=== PATIENT | male | born 1985 | race Caucasian/White ===

== ENCOUNTER 2023-09-04 21:55 | Emergency (ER) | payer BC, SELFPAY ==
--- NOTE | ~2023-09-04 | CT_ITS ---
EXAMINATION: CT lumbar spine wo con DATE: 09/04/2023 22:36 INDICATION: Left hip and leg pain extending from the waist down post fall TECHNIQUE: Computed tomography (CT) of the lumbar spine was performed without intravenous contrast. A utomated exposure control and iterative reconstruction technique were employed. The dose-length produ ct was 1359.34 mGy-cm. COMPARISON: None FINDINGS: Transitional L5 segment which is sacralized on the left and with likely developmentally small L5-S1 d isc space. Alignment is normal. Vertebral body heights are normal. No fracture. Mild disc height loss at L4-L5. There are mild disc bulges at L2-L3, L3-L4 and L4-L5 with mild central canal stenosis at L 3-L4 and L4-L5. Posterior elements are unfused at L5 and S1. There is multilevel minimal to mild face t osteoarthritis in the lumbar spine. No neural foraminal stenosis. Paravertebral soft tissues are un remarkable. IMPRESSION: 1. Mild lumbar spondylosis. Reviewed, dictated and finalized at location A. IMPRESSION: 1. Mild lumbar spondylosis.
--- NOTE | ~2023-09-04 | XR_ITS ---
EXAMINATION: XR hip LT 2V w AP pelvis DATE: 09/04/2023 22:42 INDICATION: Left hip and leg pain post fall TECHNIQUE: Anteroposterior view of the pelvis and anteroposterior and frog-leg lateral views of the l eft hip were obtained. COMPARISON: CT dated 06/05/2016 FINDINGS: Bone alignment is normal. No fracture. Joint spaces are normal. Chronic bone islands at the left femo ral head and neck. Transitional L5 segment which is sacralized on the left and with unfused posterior elements. Soft tissues are unremarkable. IMPRESSION: 1. No acute osseous abnormality. Reviewed, dictated and finalized at location A.
--- NOTE | ~2023-09-04 | CT_ITS ---
EXAMINATION: CT brain wo con DATE: 09/04/2023 22:36 INDICATION: Fall with head injury and loss of consciousness TECHNIQUE: Computed tomography (CT) of the head was performed without intravenous contrast. Sagittal and coronal reconstructions were performed. The mA was adjusted according to patient size. Iterative reconstruction technique was employed. The dose-length product was 605.33 mGy-cm. COMPARISON: None FINDINGS: No fracture. No acute intracranial hemorrhage, acute infarction or abnormal extra axial fluid collect ion. Ventricles are normal and symmetric. No mass/mass effect. Mild mucosal thickening in the right s phenoid sinus. The orbits and mastoid air cells are normal. IMPRESSION: 1. Normal brain. No fracture or acute intracranial process. Reviewed, dictated and finalized at location A.
--- NOTE | ~2023-09-04 | CT_ITS ---
EXAMINATION: CT cervical spine wo con DATE: 09/04/2023 22:36 INDICATION: Fall with head injury TECHNIQUE: Computed tomography (CT) of the cervical spine was performed without intravenous contrast. Automated exposure control and iterative reconstruction technique were employed. The dose-length pro duct was 557.96 mGy-cm. COMPARISON: None FINDINGS: Mild reversal of the normal cervical lordosis which is likely positional. No spondylolisthesis or fac et subluxation. Vertebral body heights are normal. No acute fracture. Mild osteoarthritis at the atla ntoaxial articulation. Disc heights are normal. No central canal or neural foraminal stenosis. Cervic al soft tissues are unremarkable. Visualized apices of lungs are clear. IMPRESSION: 1. Unremarkable cervical spine CT with no acute osseous abnormality. Reviewed, dictated and finalized at location A.
[2023-09-04 21:52] VITALS: BP 149/94; PULSE 63; RESP 18; TEMP 36.4; O2SAT 96
[2023-09-04] MEDS: ACETAMINOPHEN 500 MG TABLET 1000 MG PO (22:18)
--- NOTE | 2023-09-04 22:25 | ED.GENADULT ---
HPI - General Adult General Chief complaint: Fall Stated complaint: FALL, +LOC Time Seen by Provider: 09/04/23 22:00 History of Present Illness HPI narrative: This is a 30-year-old male presenting after a fall. Patient was trying to get out of his [employer] when he believes he slipped and fell landing on his backside. He now has pain in his lower back, in his left hip shooting down his left leg. He also has a headache. Patient states he feels woozy. Patient states multiple times that he is under a significant of stress at work. He works as a pharmacist. He has anxiety for which he takes an SNRI and clonazepam. Patient states last dose of the clonazepam was this morning. no use of blood thinners. Related Data Allergies Allergy/AdvReac Type Severity Reaction Status Date / Time Penicillins Allergy Intermediate RASH Verified 09/04/23 22:02 [facility] Past Medical History Medical History Anxiety Exam Narrative: APPEARANCE: No apparent distress. Head: atraumatic. EYES: EOMI, NOSE: Atraumatic NECK: Trachea midline RESPIRATORY: No increased rate of breathing, CTAB CARDIOVASCULAR: RRR, no peripheral edema ABDOMINAL: Non-distended MUSCULOSKELETAl: no obvious deformity NEURO: Alert. Cranial nerves 2-12 grossly intact. Sensation light touch, motor function cerebellar function intact for 4 extremities. SKIN:: Warm, dry. Normal color PSYCHIATRIC: Normal affect Course Vital Signs Vital signs: Vital Signs Temperature 97.6 F 09/04/23 21:52 Pulse Rate 63 09/04/23 21:52 Respiratory Rate 18 09/04/23 21:52 Blood Pressure 149/94 H 09/04/23 21:52 Pulse Oximetry 96 09/04/23 21:52 Oxygen Delivery Room Air 09/04/23 21:52 Temperature 97.6 F 09/04/23 21:52 Pulse Rate 80 09/04/23 23:17 Respiratory Rate 18 09/04/23 23:17 Blood Pressure 151/93 H 09/04/23 23:17 Pulse Oximetry 100 09/04/23 23:17 Oxygen Delivery Room Air 09/04/23 21:52 Medical Decision Making MDM Narrative Medical decision making narrative: -Course: 38-year-old male fall presenting ED after falling out of his truck. Trauma workup negative. Patient treated with NSAIDs and muscle relaxers discharged with primary care follow-up and return precautions. -DDX includes but is not limited to: Strains and bruises, sciatica, bony injury, muscle spasm ICH, concussion, benzo overdose -Co-morbidities complicating care: anxiety -Social determinants of health: works as a pharmacist, lives with his and children -Independent interpretation of studies: CT head C-spine and L-spine negative for injury. Hip x-ray normal. -Interventions: Motrin Tylenol Robaxin -Shared decision making / Disposition: discharge -RX: Motrin/tylenol/robaxin Vital Signs Vital Signs: Vital Signs Temperature 97.6 F 09/04/23 21:52 Pulse Rate 63 09/04/23 21:52 Respiratory Rate 18 09/04/23 21:52 Blood Pressure 149/94 H 09/04/23 21:52 Pulse Oximetry 96 09/04/23 21:52 Oxygen Delivery Room Air 09/04/23 21:52 Temperature 97.6 F 09/04/23 21:52 Pulse Rate 80 09/04/23 23:17 Respiratory Rate 18 09/04/23 23:17 Blood Pressure 151/93 H 09/04/23 23:17 Pulse Oximetry 100 09/04/23 23:17 Oxygen Delivery Room Air 09/04/23 21:52 Discharge Plan Discharge Clinical Impression: Acute left lumbar radiculopathy Patient Disposition: Home, Self-Care Condition: Stable Instructions: Antibiotic Form Additional Instructions: Please take Motrin Tylenol Robaxin for pain. Please return to the emergency department if you develop severe pain weakness in your legs or inability to urinate. Otherwise please follow-up with your primary care physician. Prescriptions: New ibuprofen 800 mg tablet 800 mg PO TID PRN (Reason: pain) 7 Days Qty: 21 0RF acetaminophen 500 mg tablet 1,000 mg PO TID PRN (Reason: shea) 7 Days Qty: 42 0RF methocarbamol 750 mg ta
[2023-09-04] MEDS: IBUPROFEN 400 MG TABLET 800 MG PO (22:54)
[2023-09-04] MEDS: methocarbamoL 750 MG TABLET PO (23:16)
[2023-09-04 23:17] VITALS: BP 151/93; PULSE 80; RESP 18; O2SAT 100
== END 2023-09-05 00:02 | disposition home or self-care (01) ==
LOC: ANHED 23:52
PROVIDERS: Emergency Provider Emergency Medicine; PCP Nurse Practitioner Family
DX: M54.16 Radiculopathy, lumbar region (principal); F41.9 Anxiety disorder, unspecified; W17.89XA Other fall from one level to another, initial encounter
CPT/HCPCS: 70450; 72125; 72131; 73502; 99284; A9270

== ENCOUNTER 2025-04-02 08:35 | Emergency (ER) | payer BC, SELFPAY ==
--- NOTE | ~2025-04-02 | XR_ITS ---
Examination: XR chest 2V Clinical History: cough x1 week, fever Comparison: None Technique: PA and Lateral Findings: Cardiomediastinal silhouette normal size and configuration. Lungs clear. No acute bony abnormality. IMPRESSION: 1. No acute cardiopulmonary findings. Reviewed, dictated and finalized at location R. ING ROD ASSEMBLER
[2025-04-02 08:43] VITALS: BP 151/102; PULSE 115; RESP 16; TEMP 36.8; O2SAT 97
--- NOTE | 2025-04-02 09:55 | ED.URI ---
HPI - URI/Sore Throat General Chief Complaint: Upper Respiratory Infection Stated Complaint: Cold Symptoms Time Seen by Provider: 04/02/25 09:45 Source: patient and RN notes reviewed Mode of arrival: ambulatory Limitations: no limitations History of Present Illness HPI Narrative: 40-year-old male patient presents today with a one-week history of cough, fatigue, chills. Reports running a fever over 100 the past couple of days with shortness of breath with exertion. No OTC medication today for symptoms, but had been taking ibuprofen, Tylenol, and Mucinex. He had a telemedicine visit 4 days ago and was diagnosed with a viral illness and treated with Tessalon Perles. and child diagnosed with pneumonia earlier in the week. Related Data Home Medications ?Medication ?Instructions ?Recorded ?Confirmed ?Last Taken ?Type atogepant 60 mg tablet (Qulipta) mg 04/02/25 Unknown History benzonatate 100 mg capsule mg PO 04/02/25 Unknown History clonazepam 0.5 mg tablet mg 04/02/25 Unknown History desvenlafaxine succinate 100 mg mg PO 04/02/25 Unknown History tablet,extended release 24 hr desvenlafaxine succinate 50 mg mg PO 04/02/25 Unknown History tablet,extended release 24 hr lisinopril 10 mg tablet mg 04/02/25 Unknown History pantoprazole 40 mg tablet,delayed mg PO 04/02/25 Unknown History release rosuvastatin 10 mg tablet mg 04/02/25 Unknown History zavegepant 10 mg/actuation nasal intranasal 04/02/25 Unknown History spray (Zavzpret) Allergies Allergy/AdvReac Type Severity Reaction Status Date / Time Penicillins Allergy Intermediate RASH Verified 04/02/25 08:49 [facility] Past Medical History Medical History (Updated 04/02/25 @ 10:07 by Nydia Jones, ORACLE SPECIALIST, ASSOCIATE FIELD SERVICE ENGINEER) Migraines Anxiety Comments At time of signature, I have reviewed and agree with nursing past medical, surgical, social and family history unless otherwise noted. Please see nursing chart for further information. There is no relevant family history pertinent to the presenting complaint Exam Narrative: GENERAL: Mildly ill-appearing, well-nourished, and in no acute distress. HEAD: Normocephalic, atraumatic. EYES: EOMI. No redness or drainage. Conjunctivae normal. ENT: Mucous membranes pink and moist. Nares clear. No rhinorrhea. TMs normal bilaterally. Throat normal. Uvula midline. NECK: Normal AROM. Supple. No lymphadenopathy. CHEST: No respiratory distress. Clear to auscultation. HEART: Regular rate and rhythm. No murmur appreciated. EXTREMITIES: Normal range of motion. No edema. SKIN: Warm, dry, no rash. Capillary refill normal. Normal skin turgor. NEURO: No focal deficits. Alert and oriented x3. Gait steady. PSYCH: Normal affect. No signs of depression or anxiety. Course Course Level of Care: Express Care Visit Vital Signs Vital signs: Vital Signs Temperature 98.2 F 04/02/25 08:43 Pulse Rate 115 H 04/02/25 08:43 Respiratory Rate 16 04/02/25 08:43 Blood Pressure 151/102 H 04/02/25 08:43 Pulse Oximetry 97 04/02/25 08:43 Temperature 98.2 F 04/02/25 08:43 Pulse Rate 115 H 04/02/25 08:43 Respiratory Rate 16 04/02/25 08:43 Blood Pressure 151/102 H 04/02/25 08:43 Pulse Oximetry 97 04/02/25 08:43 Oxygen Delivery Room Air 04/02/25 08:50 Reviewed MDM - URI/Sore Throat MDM Narrative Medical decision making narrative: 40-year-old male patient presents today with a one-week history of cough, fatigue, chills. Reports running a fever over 100 the past couple of days with shortness of breath with exertion. No OTC medication today for symptoms, but had been taking ibuprofen, Tylenol, and Mucinex. He had a telemedicine visit 4 days ago and was diagnosed with a viral illness and treated with Tessteve [place]. and child diagnosed with pneumonia earlier in the week. Upon exam, patient is mildly ill appearing, but exam is otherwise normal. Chest x-ray negative. With patient's recent fever and tachycardia, will treat with doxycycline for presumed bacterial infection, possibly sinusitis. Patient agrees with plan. Anticipatory guidance given. ED precautions given. Differential Diagnosis Differential diagnosis: Likely upper respiratory infection, otitis media, sinusitis, viral infection, bronchitis and other (Pneumonia) Imaging Data Radiologist's impression: ITS Impressions Chest X-Ray 04/02/25 09:46 IMPRESSION: 1. No acute cardiopulmonary findings. Critical Care Time Critical Care Time Critical Care Time: No Discharge Plan Discharge Clinical Impression: Cough, Upper respiratory symptom Patient Disposition: Home Condition: Stable Instructions: Antibiotic Form, Sinusitis (ED) Additional Instructions: Your chest x-ray is negative for pneumonia. Please take the doxycycline as prescribed until gone. Continue [id number] medication as needed. Follow-up with your PCP with any additional concerns. Go to the ER immediately if symptoms worsen. Your blood pressure was elevated above 120/80 today at Urgent Care. This puts you above the threshold for follow up. Please schedule a followup visit with your personal physician as soon as possible, for further evaluation and treatment. Even blood pressure exceeding 120/80 may indicate pre-hypertension. Patient Language: Czech Prescriptions: New doxycycline hyclate 100 mg tablet 100 mg PO BID 7 Days Qty: 14 0RF No Action clonazepam 0.5 mg tablet benzonatate 100 mg capsule PO pantoprazole 40 mg tablet,delayed release (DR/EC) PO lisinopril 10 mg tablet rosuvastatin 10 mg tablet desvenlafaxine succinate 50 mg tablet extended release 24 hr PO desvenlafaxine succinate 100 mg tablet extended release 24 hr PO Qulipta 60 mg tablet Zavzpret 10 mg/actuation spray,non-aerosol INTRANASAL ibuprofen 800 mg tablet 800 mg PO TID PRN (Reason: pain) 7 Days Qty: 21 0RF Follow-up/Referrals: Lefty,BRIEN Green [Primary Care Provider, Unknown] Time of Disposition: 10:07
== END 2025-04-02 10:10 | disposition home or self-care (01) ==
PROVIDERS: Emergency Provider Nurse Practitioner; PCP Nurse Practitioner Family
DX: R05.9 Cough, unspecified (principal); J06.9 Acute upper respiratory infection, unspecified; F41.9 Anxiety disorder, unspecified
CPT/HCPCS: 71046; 99213; G0463